=== PATIENT | male | born 1945 | race Caucasian/White ===

== ENCOUNTER → 2018-04-27 10:12 | Outpatient (CLI) | payer MEDICARE, OTHER, SELFPAY | PROVIDERS: PCP Family Medicine; Visit Provider Urology | DX: R97.20 Elevated prostate specific antigen [PSA] (principal) | CPT/HCPCS: 36415; 84153 ==

== ENCOUNTER → 2018-09-05 10:49 | Outpatient (CLI) | payer MEDICARE, OTHER, SELFPAY ==
[2018-09-05 12:21] LABS: Add Manual Diff / Slide Review NO; Basophils Percent Auto 0.7 % (0-2); Eosinophils Percent Auto 1.7 % (2-4); Hematocrit 44.4 % (41-53); Hemoglobin 14.9 g/dL (13.5-17.5); Lymphocytes Percent Auto 35.7 % (25-40); Mean Corpuscular HGB Conc 33.6 % (30-36); Mean Corpuscular Hemoglobin 31.3 PG (26-34); Mean Corpuscular Volume 93.1 fL (80-100); Monocytes Percent Auto 7.1 % (3-14); Neutrophils Absolute Auto 2800 /uL (3000-5900); Neutrophils Percent Auto 54.8 % (50-75); Platelet Count 219 X10^3/uL (150-400); Red Blood Cell Count 4.77 X10^6/uL (4.5-5.9); Red Cell Distribution Width 13.5 % (11.6-14.8); White Blood Cell Count 5.2 X10^3/uL (4.5-11.0)
[2018-09-05 12:43] LABS: Alanine Aminotransferase 29 IU/L (21-72); Albumin 4.2 g/dL (3.5-5.0); Albumin Globulin Ratio 1.8 (1.0-2.8); Alkaline Phosphatase 68 U/L (38-126); Aspartate Aminotransferase 24 IU/L (17-59); BUN Creatinine Ratio 17.1 (6-22); Bilirubin Total 0.5 mg/dL (0.2-1.3); Blood Urea Nitrogen 12 mg/dL (9-20); Calcium 9.6 mg/dL (8.4-10.2); Carbon Dioxide 33 mmol/L (22-32); Chloride 102 mmol/L (98-107); Estimated Glomerular Filt Rate > 60.0 mL/min (>60); Globulin 2.4 g/dL (1.7-4.1); Glucose 88 mg/dL (80-110); HEMOLYSIS < 15 (0-50); Potassium 4.3 mmol/L (3.4-5.1); Sodium 144 mmol/L (137-145); Total Protein 6.6 g/dL (6.3-8.2)
== END ==
PROVIDERS: Family Provider Family Medicine; PCP Family Medicine; Visit Provider Internal Medicine Cardiovascular Disease
DX: I48.91 Unspecified atrial fibrillation (principal)
CPT/HCPCS: 36415; 80053; 85025

== ENCOUNTER → 2019-05-14 08:10 | Outpatient (CLI) | payer MEDICARE, OTHER, SELFPAY ==
[2019-05-14 09:42] LABS: Prostate Specific Antigen 1.18 ng/mL (0.10-4.00)
== END ==
PROVIDERS: Family Provider Family Medicine; PCP Family Medicine; Visit Provider Urology
DX: R97.20 Elevated prostate specific antigen [PSA] (principal)
CPT/HCPCS: 36415; 84153

== ENCOUNTER 2019-11-28 07:39 | Day surgery (SDC) | payer MEDICARE, OTHER, SELFPAY ==
--- NOTE | 2019-11-28 | PATH_ITS ---
[facility] Accession Number: [id number] . 01 Material submitted: . colon - COLON BIOPSY AT 20 X2 . 01 Clinical history: . COLONOSCOPY . 02 Diagnosis: Colon Biopsy at 20 cm x2: Multiple fragments of serrated lesion, cannot exclude sessile serrated adenoma. MRV 11/29/2019 1322 Local . 02 Electronically signed: . Nadia Boggs MD, Pathologist NPI- [id number] . 01 Gross description: . COLON BIOPSY AT 20 X2: Received in formalin are multiple fragment(s) of miguel, soft tissue measuring 0.1 x 0.1 x 0.1 cm to 0.2 x 0.2 x 0.2 cm submitted entirely in 1 cassette(s) /[facility] 11/29/2019 0016 Local . 02 Pathologist provided ICD-10: R85.5, K62.5 . 02 CPT . 415244 Performed at: 01 [facility] [address], [place], [place] [id number] MD Vladimir Silva MD Phone: [phone] Performed at: 02 [facility] [address] [place], [place] [id number] MD Mary Torres MD Phone: [phone]
[2019-11-28 08:05] VITALS: BP 149/99; PULSE 101; RESP 16; TEMP 36; O2SAT 99; BMI 27.0
--- NOTE | 2019-11-28 08:41 | PM.PREOP ---
Pre-operative Note Interval Note History & Physical reviewed/Exam performed by Physician: Yes Changes to H&P: No ASA Class (for procedural sedation): II
[2019-11-28] MEDS: MIDAZOLAM 5 MG/5 ML VIAL IV (08:49)
[2019-11-28] MEDS: fentaNYL 250 MCG/5 ML INJ IV (08:49)
[2019-11-28] MEDS: SODIUM CHLORIDE 0.9% 1,000 ML 200 ML IV (09:00)
--- NOTE | 2019-11-28 09:10 | SUR.OPER ---
GLASSES IN LABELED BAG TO PACU WITH PATIENT.
[2019-11-28 09:20] VITALS: BP 113/71; PULSE 92; RESP 17; TEMP 36.6; O2SAT 97
--- NOTE | 2019-11-28 09:23 | PM.OP.ENDO ---
Operative Date/Time/Diagnoses Date of procedure: 11/28/19 Time of procedure: 09:23 Pre-op diagnosis: Screening exam. Positive fit test. Post-op diagnosis: same (Two very small polyps in the rectum which were placed in the same container.) Procedure & Clinicians Study performed: Colonoscopy with cold biopsy Same procedure as scheduled: Yes Indications: Screening and positive fit test Surgeon: Edi Garcia Procedure Notes SCOAP/Timeout: Performed Procedure in detail: The patient was placed in the left lateral decubitus position and underwent IV sedation directed by the surgeon consisting of fentanyl and Versed. Digital exam was unremarkable except for some mild narrowing of the anus. The scope was inserted and advanced through the rectum into the sigmoid, descending, transverse, and ascending colon. The cecum was reached identified by the ileocecal valve and the appendiceal opening. The scope was gradually brought out. Two Polyps were found at the rectum at 15 and 20 cm from the anal verge. There were placed in the same container. The scope ultimately was retroflexed in the rectum. The appearance was normal. The scope was removed and the patient tolerated the procedure well. Prep was adequate Scope withdrawal time: 6 minutes (8-1/2 total) Sedation minutes: 26 Findings: polyp (Two small) Specimen(s): other (Polyps) Complications: none Post-procedure Recommendations: Colonscopy in 5 years Follow up: as needed Disposition: PACU
[2019-11-28 09:25] VITALS: BP 111/71; PULSE 85; RESP 14; O2SAT 97
[2019-11-28 09:30] VITALS: BP 112/72; PULSE 84; RESP 11; TEMP 37.1; O2SAT 98
[2019-11-28 09:36] VITALS: BP 122/74; PULSE 83; RESP 16; TEMP 36.3; O2SAT 98
== END 2019-11-28 10:00 | disposition home or self-care (01) ==
PROVIDERS: PCP Family Medicine; Visit Provider Specialist
PROC: 0DJD8ZZ Inspection of Lower Intestinal Tract, Via Natural or Artificial Opening Endoscopic (ICD-10-PCS; CPT 45378; principal; 2019-11-28 08:45)
DX: K63.5 Polyp of colon (principal); I48.91 Unspecified atrial fibrillation; Z79.01 Long term (current) use of anticoagulants; N40.0 Benign prostatic hyperplasia without lower urinary tract symptoms
CPT/HCPCS: 45380; 99152; 99153; J2250; J3010

== ENCOUNTER → 2020-04-10 07:42 | Outpatient (CLI) | payer MEDICARE, OTHER, SELFPAY ==
--- NOTE | 2020-04-10 | DI.NM.S_ITS ---
PROCEDURE: NM TYLER PERF SPECT REST & STR Rest and exercise myocardial perfusion SPECT with gated imaging and ejection fraction RADIOPHARMACEUTICAL: 11.0 mCi Tc-99m sestamibi IV at rest and 25.6 mCi Tc-99m sestamibi IV at peak exercise. A one day-protocol was performed. INDICATIONS: Unspecified atrial fibrillation TECHNIQUE: Radiopharmaceutical was injected at peak stress test, and also at rest. SPECT images were obtained. SPECT myocardial perfusion images were displayed in short axis, horizontal long axis, and vertical long axis views. Gated images were reviewed using [employer]igating [employer] software. COMPARISON: None. CARDIAC STRESS: A standard treadmill exercise tolerance test was performed by the patient under the supervision of an attending staff. The patient exercised for 6 minutes and 30 seconds; functional aerobic impairment (JERRY) is -5%. Hemodynamic data: There is normal blood pressure and heart rate response to exercise stress. Patient achieved 112% of maximum predicted heart rate at peak exercise. Symptoms: Patient denied chest pain during exercise. EKG: Atrial fibrillation with controlled ventricular response at rest. No diagnostic EKG changes of ischemia. FINDINGS: Raw data: There is good myocardial labeling by radiotracer. No significant motion artifacts. Qqlm-uc-eqhrk ratio is 0.38 (normal is less than 0.38 for sestamibi tracer, and less than 0.50 for thallium tracer). Left ventricle function: Gated images demonstrate normal left ventricle wall thickening. No segmental wall motion abnormality. No transient ischemic dilation; TID is 0.99 (normal less than 1.3). The left ventricle resting end-diastolic volume is 123 mL. Left ventricle stress ejection fraction is 63%; normal values are above 45%. Myocardial perfusion: There is mildly intense fixed inferior wall defect that improves significantly with prone imaging, suggesting diaphragmatic attenuation artifact than true ischemia or infarction. IMPRESSION: Low risk, probably normal treadmill nuclear stress test. 1) No definite perfusion evidence of ischemia or ischemia. There is mildly intense fixed inferior wall defect that improves significantly with prone imaging, suggesting diaphragmatic attenuation artifact than true ischemia or infarction. 2) Normal left ventricular size, wall motion, and systolic function (EF post stress 63%). 3) No ECG evidence of ischemia. Atrial fibrillation present throughout the study. 4) No angina during the study. 5) Average exercise tolerance (7.0 METs, JERRY -5%). Appropriate BP response to exercise. 6) No prior nuclear stress test available for comparison. Dictated by: Jonathan Vuong MD on 04/10/2020 at 14:57 Approved by: Jonathan Vuong MD on 04/10/2020 at 15:02
--- NOTE | 2020-04-10 11:51 | PM.TREADMILL ---
Cardiac Stress Test Report Referral & Results Date Patient Seen: 04/10/20 Time Patient Seen: 11:51 Requesting provider: John Paul Gallardo Indication: atrial fibrillation Rest ECG: atrial fibrillationw with controlled ventricular rate Procedure Note: Standard protocol, 6:30, 7.3 METS Fair exercise capacity, JERRY -5% Normal hemodynamic response to exercise No chest pain or anginal symptoms Resting ECG atrial fibrillation with CVR, no ST changes with exercise, rare couplets Impression: Normal exercise stress test Please note: Actual ECG tracings can be found in the PACS system.
== END ==
PROVIDERS: PCP Family Medicine; Referring Provider Family Medicine; Visit Provider Family Medicine
DX: I48.91 Unspecified atrial fibrillation (principal)
CPT/HCPCS: 78452; 93017; A9502

== ENCOUNTER → 2020-04-24 07:50 | Outpatient (CLI) | payer MEDICARE, OTHER, SELFPAY ==
[2020-04-24 10:18] LABS: Prostate Specific Antigen 1.03 ng/mL (0.10-4.00)
== END ==
PROVIDERS: PCP Family Medicine; Referring Provider Urology; Visit Provider Urology
DX: R97.20 Elevated prostate specific antigen [PSA] (principal)
CPT/HCPCS: 36415; 84153

== ENCOUNTER → 2020-10-10 07:31 | Outpatient (CLI) | payer MEDICARE, OTHER, SELFPAY ==
[2020-10-10 09:32] LABS: Alanine Aminotransferase 15 IU/L (<50); Albumin 4.3 g/dL (3.5-5.0); Albumin Globulin Ratio 1.5 (1.0-2.8); Alkaline Phosphatase 71 U/L (38-126); Aspartate Aminotransferase 25 IU/L (17-59); BUN Creatinine Ratio 15.4 (6-22); Bilirubin Total 0.6 mg/dL (0.2-1.3); Blood Urea Nitrogen 10 mg/dL (9-20); Calcium 9.5 mg/dL (8.4-10.2); Carbon Dioxide 30 mmol/L (22-32); Chloride 105 mmol/L (98-107); Cholesterol 157 mg/dL (140-199); Creatinine Urine Random 57.4 mg/dL; Estimated Glomerular Filt Rate > 60.0 mL/min (>60); Globulin 2.8 g/dL (1.7-4.1); Glucose 112 mg/dL (80-110); HDL Cholesterol 47 mg/dL (40-60); HEMOLYSIS < 15 (0-50); LDL Cholesterol Calculated 96 mg/dL (<100); Sodium 139 mmol/L (137-145); Total Protein 7.1 g/dL (6.3-8.2); Triglycerides 68 mg/dL (35-150)
[2020-10-10 09:43] LABS: Microalbumin Urine Random < 0.6 mg/dL (0-1.6)
== END ==
PROVIDERS: PCP Family Medicine; Referring Provider Family Medicine; Visit Provider Family Medicine
DX: I10 Essential (primary) hypertension (principal); I48.91 Unspecified atrial fibrillation; N13.8 Other obstructive and reflux uropathy; N40.1 Benign prostatic hyperplasia with lower urinary tract symptoms
CPT/HCPCS: 36415; 80053; 80061; 82043; 82570

== ENCOUNTER → 2021-06-03 08:52 | Outpatient (CLI) | payer MEDICARE, OTHER, SELFPAY ==
[2021-06-03 10:53] LABS: Prostate Specific Antigen 1.02 ng/mL (0.10-4.00)
== END ==
PROVIDERS: PCP Family Medicine; Referring Provider Specialist; Visit Provider Specialist
DX: N13.8 Other obstructive and reflux uropathy (principal); N40.1 Benign prostatic hyperplasia with lower urinary tract symptoms
CPT/HCPCS: 36415; 84153

== ENCOUNTER → 2021-12-28 07:48 | Outpatient (CLI) | payer MEDICARE, OTHER, SELFPAY ==
[2021-12-28 09:51] LABS: Add Manual Diff / Slide Review NO; Basophils Absolute Auto 0 /uL (0-100); Basophils Percent Auto 0.3 % (0-2); Eosinophils Absolute Auto 100 /uL (0-450); Eosinophils Percent Auto 1.3 % (2-4); Hematocrit 44.7 % (41-53); Hemoglobin 15.4 g/dL (13.5-17.5); Lymphocytes Absolute Auto 1500 /uL (1100-4500); Lymphocytes Percent Auto 25.6 % (25-40); Mean Corpuscular HGB Conc 34.5 % (30-36); Mean Corpuscular Hemoglobin 31.6 PG (26-34); Mean Corpuscular Volume 91.6 fL (80-100); Monocytes Absolute Auto 400 /uL (0-900); Monocytes Percent Auto 7.5 % (3-14); Neutrophils Absolute Auto 3900 /uL (1500-7000); Neutrophils Percent Auto 65.3 % (50-75); Platelet Count 199 X10^3/uL (150-400); Red Blood Cell Count 4.87 X10^6/uL (4.5-5.9); Red Cell Distribution Width 13.6 % (11.6-14.8); White Blood Cell Count 5.9 X10^3/uL (4.5-11.0)
[2021-12-28 10:24] LABS: Alanine Aminotransferase 19 IU/L (<50); Albumin 4.3 g/dL (3.5-5.0); Albumin Globulin Ratio 1.5 (1.0-2.8); Alkaline Phosphatase 72 U/L (38-126); Aspartate Aminotransferase 29 IU/L (17-59); BUN Creatinine Ratio 13.9 (6-22); Bilirubin Total 0.8 mg/dL (0.2-1.3); Blood Urea Nitrogen 10 mg/dL (9-20); Calcium 9.6 mg/dL (8.4-10.2); Carbon Dioxide 31 mmol/L (22-32); Chloride 103 mmol/L (98-107); Cholesterol 161 mg/dL (140-199); Estimated Glomerular Filt Rate > 60.0 mL/min (>60); Globulin 2.8 g/dL (1.7-4.1); Glucose 95 mg/dL (80-110); HDL Cholesterol 50 mg/dL (40-60); HEMOLYSIS < 15 (0-50); LDL Cholesterol Calculated 99 mg/dL (<100); Potassium 3.7 mmol/L (3.4-5.1); Sodium 141 mmol/L (137-145); Total Protein 7.1 g/dL (6.3-8.2); Triglycerides 61 mg/dL (35-150)
[2021-12-28 11:13] LABS: Creatinine Urine Random 39.2 mg/dL
[2021-12-28 11:18] LABS: Microalbumi Creatinin Ratio Ur 17.8 ug/mg CR (<30); Microalbumin Urine Random 0.7 mg/dL (0-1.6)
== END ==
PROVIDERS: PCP Family Medicine; Referring Provider Family Medicine; Visit Provider Family Medicine
DX: I48.19 Other persistent atrial fibrillation (principal); I10 Essential (primary) hypertension; I49.9 Cardiac arrhythmia, unspecified
CPT/HCPCS: 36415; 80053; 80061; 82043; 82570; 85025

== ENCOUNTER → 2022-01-18 09:59 | Outpatient (CLI) | payer MEDICARE, OTHER, SELFPAY ==
--- NOTE | 2022-01-18 10:01 | DI.RAD.S_ITS ---
PROCEDURE: XR CERVICAL SPINE 2V OR 3V INDICATIONS: chronic neck pain TECHNIQUE: 3 view(s) of the cervical spine were acquired. COMPARISON: None. FINDINGS: Bones: No fractures or dislocations to the T1 level. The lateral masses of C1 appear intact on the odontoid view. No suspicious bony lesions. There is ankylosis of the C2-3 facet joints, and interbody fusion at C4-5 without instrumentation. Disc space narrowing and hypertrophic facet joints noted in the lower cervical spine. Straightening of the normal cervical lordosis may be related to muscle spasm or positioning. Normal craniovertebral relationships Soft tissues: No prevertebral soft tissue swelling. IMPRESSION: 1. Multilevel degenerative disc disease and arthropathy noted in the lower cervical spine Approved by: Elia Gauthier M.D. on 01/18/2022 at 11:16
--- NOTE | 2022-01-18 10:01 | DI.RAD.S_ITS ---
PROCEDURE: XR LUMBAR SPINE 2-3V INDICATIONS: chronic low back pain TECHNIQUE: 3 views of the lumbar spine were acquired. COMPARISON: None. FINDINGS: Bones: 5 ozf-lqb-ddjvcjv vertebrae are present. There is normal bony alignment. No vertebral body compression fractures. No suspicious bony lesions. Disc space narrowing and hypertrophic facet joints present in the lower lumbar spine. Incidental note is made of partial sacralization of the L5 lumbar vertebral body. Soft tissues: Overlying bowel gas pattern is normal. No suspicious soft tissue calcifications. Moderate fecal debris noted in the right colon. IMPRESSION: Multilevel degenerative disc disease and arthropathy. Incidental partial sacralization of the L5 vertebral body Moderate fecal debris in the right colon Approved by: Elia Gauthier M.D. on 01/18/2022 at 11:19
== END ==
PROVIDERS: PCP Family Medicine; Referring Provider Family Medicine; Visit Provider Family Medicine
DX: M47.812 Spondylosis without myelopathy or radiculopathy, cervical region (principal); M50.30 Other cervical disc degeneration, unspecified cervical region; M51.36 Other intervertebral disc degeneration, lumbar region; M47.816 Spondylosis without myelopathy or radiculopathy, lumbar region; M54.50 Low back pain, unspecified; I10 Essential (primary) hypertension; G89.29 Other chronic pain
CPT/HCPCS: 72040; 72100

== ENCOUNTER → 2022-02-21 10:02 | Outpatient (CLI) | payer MEDICARE, OTHER, SELFPAY ==
[2022-02-21 13:46] LABS: COVID19 -Nasal RAPID Negative (Negative)
== END ==
PROVIDERS: PCP Family Medicine; Visit Provider Family Medicine Sleep Medicine
DX: Z20.822 Contact with and (suspected) exposure to COVID-19 (principal)
CPT/HCPCS: 87635; C9803

== ENCOUNTER → 2022-02-22 09:44 | Outpatient (CLI) | payer MEDICARE, OTHER, SELFPAY ==
--- NOTE | 2022-02-23 20:55 | DI.NM.S_ITS ---
DATE OF SERVICE: 02/22/2022 PROCEDURE PERFORMED: Exercise perfusion study. INDICATION: Syncope with underlying AFib. RADIOPHARMACEUTICAL: 25.1 millicurie technetium-99m Myoview IV was injected at stress and 11.8 millicurie technetium-99m Myoview IV was injected at rest. CARDIAC STRESS: The patient underwent exercise perfusion study under the supervision of an attending staff. The patient walked on protocol for 9 minutes and achieved 131 percent of target heart rate with maximum heart rate of 188 beats per minute. Normal peak blood pressure 154/98 mmHg. Baseline rhythm was atrial fibrillation with controlled ventricular rate with some nonspecific ST changes. The patient continued to have nonspecific ST-T changes during exercise. In early recovery, the patient had about [address] depression in inferior leads, which got recovered to baseline in 3 minutes. Occasional PVCs and one ventricular couplet. No ventricular tachycardia. No anginal symptoms. The patient achieved 10.1 METs of workload and functional aerobic impairment 47 percent. RAW DATA: There is increased subdiaphragmatic activity. GATED STUDY: Resting LV ejection fraction 65 percent and stress LV ejection fraction 72 percent. Resting end-diastolic volume 123 mL. TID ratio 0.86, which is within normal limits. Lung/heart ratio 0.37, which is within normal limits. MYOCARDIAL PERFUSION SCAN: Stress supine, resting supine and stress prone images were compared to each other. Stress supine and resting supine images revealed a small size, mildly decreased perfusion of inferior wall, as well as distal septum. During stress prone images, significant improvement in inferior wall defect, as well as distal septal defect. No convincing ischemia or infarction. CONCLUSION: Low risk, probably normal treadmill nuclear stress test. No obvious evidence of ischemia or infarction. The stress prone images revealed improvement in inferior wall and distal septal perfusion defect. Excellent exercise tolerance. JERRY -47 percent. The patient walked on protocol for 9 minutes. Baseline atrial fibrillation with controlled ventricular rate, however, during exercise. Maximum heart rate of 188, achieved with underlying atrial fibrillation. Nonspecific ST changes. Stress left ventricular ejection fraction 72 percent and resting left ventricular ejection fraction 55 percent. No anginal symptoms. The patient had exercise perfusion study in 02/09/2020. At that time, the patient walked on protocol for 6 minutes and 30 seconds. Similar perfusion defect. In this study, the patient walked on protocol for 9 minutes. Mike Maldonado: [id number] KWAKU/maryann/david doc#: [id number]/job#: [id number] dd: 02/23/2022 17:22:00 dt: 02/23/2022 20:32:00 DICTATING MD/COPIES TO: Soco Howe MD COPIES MNE: EVELIA;
== END ==
PROVIDERS: PCP Family Medicine; Referring Provider Internal Medicine Cardiovascular Disease; Visit Provider Internal Medicine Cardiovascular Disease
DX: R55 Syncope and collapse (principal); I48.21 Permanent atrial fibrillation; I47.2 Ventricular tachycardia
CPT/HCPCS: 78452; 93017; A9502

== ENCOUNTER → 2022-07-12 09:00 | Outpatient (CLI) | payer MEDICARE, OTHER, SELFPAY ==
[2022-07-12 10:55] LABS: Prostate Specific Antigen 1.22 ng/mL (0.10-4.00)
== END ==
PROVIDERS: PCP Family Medicine; Referring Provider Specialist; Visit Provider Specialist
DX: R97.20 Elevated prostate specific antigen [PSA] (principal)
CPT/HCPCS: 36415; 84153

== ENCOUNTER → 2023-03-29 07:38 | Outpatient (CLI) | payer MEDICARE, OTHER, SELFPAY ==
[2023-03-29 08:04] LABS: Add Manual Diff / Slide Review NO; Basophils Absolute Auto 0 /uL (0-100); Basophils Percent Auto 0.7 % (0-2); Eosinophils Absolute Auto 100 /uL (0-450); Eosinophils Percent Auto 1.1 % (2-4); Hematocrit 42.7 % (41-53); Hemoglobin 14.8 g/dL (13.5-17.5); Lymphocytes Absolute Auto 1700 /uL (1100-4500); Lymphocytes Percent Auto 33.3 % (25-40); Mean Corpuscular HGB Conc 34.6 % (30-36); Mean Corpuscular Hemoglobin 31.7 PG (26-34); Mean Corpuscular Volume 91.5 fL (80-100); Monocytes Absolute Auto 400 /uL (0-900); Monocytes Percent Auto 7.7 % (3-14); Neutrophils Absolute Auto 3000 /uL (1500-7000); Neutrophils Percent Auto 57.2 % (50-75); Platelet Count 193 X10^3/uL (150-400); Red Blood Cell Count 4.66 X10^6/uL (4.5-5.9); Red Cell Distribution Width 13.8 % (11.6-14.8); White Blood Cell Count 5.2 X10^3/uL (4.5-11.0)
[2023-03-29 08:24] LABS: Alanine Aminotransferase 21 IU/L (<50); Albumin Globulin Ratio 1.6 (1.0-2.8); Alkaline Phosphatase 79 U/L (38-126); Aspartate Aminotransferase 26 IU/L (17-59); Bilirubin Total 0.6 mg/dL (0.2-1.3); Blood Urea Nitrogen 13 mg/dL (9-20); Calcium 9.1 mg/dL (8.4-10.2); Carbon Dioxide 31 mmol/L (22-32); Chloride 102 mmol/L (98-107); Cholesterol 158 mg/dL (140-199); Estimated Glomerular Filt Rate > 60 mL/min (>60); Globulin 2.5 g/dL (1.7-4.1); Glucose 105 mg/dL (80-110); HDL Cholesterol 50 mg/dL (40-60); HEMOLYSIS < 15 (0-50); LDL Cholesterol Calculated 98 mg/dL (<100); Potassium 4.2 mmol/L (3.4-5.1); Sodium 140 mmol/L (137-145); Total Protein 6.5 g/dL (6.3-8.2); Triglycerides 49 mg/dL (35-150)
[2023-03-29 08:38] LABS: Creatinine Urine Random 145.7 mg/dL
[2023-03-29 08:42] LABS: Microalbumi Creatinin Ratio Ur 17.8 ug/mg CR (<30); Microalbumin Urine Random 2.6 mg/dL (0-1.6)
[2023-03-29 08:52] LABS: TSH w/ Reflex to FT4 2.73 uIU/mL (0.47-4.68)
[2023-03-29 09:12] LABS: Vitamin B12 Reflex MMA if <400 380 pg/mL (239-931)
[2023-04-06 14:58] LABS: Methylmalonic Acid,Serum 188 nmol/L (0-378)
== END ==
PROVIDERS: PCP Family Medicine; Referring Provider Family Medicine; Visit Provider Family Medicine
DX: G62.9 Polyneuropathy, unspecified (principal); R20.0 Anesthesia of skin
CPT/HCPCS: 36415; 80053; 80061; 82043; 82570; 82607; 83921; 84443; 85025

== ENCOUNTER → 2023-07-18 10:24 | Outpatient (CLI) | payer MEDICARE, OTHER, SELFPAY ==
[2023-07-18 12:41] LABS: Prostate Specific Antigen 1.14 ng/mL (0.10-4.00)
== END ==
PROVIDERS: PCP Family Medicine; Referring Provider Specialist; Visit Provider Specialist
DX: N40.1 Benign prostatic hyperplasia with lower urinary tract symptoms (principal); N13.8 Other obstructive and reflux uropathy
CPT/HCPCS: 36415; 84153

== ENCOUNTER → 2023-12-22 11:03 | Outpatient (CLI) | payer MEDICARE, OTHER, SELFPAY ==
--- NOTE | 2023-12-22 11:06 | DI.RAD.S_ITS ---
PROCEDURE: XR FOOT RT MIN 3V INDICATIONS: FOOT PAIN TECHNIQUE: 3 views of the foot were acquired. COMPARISON: [facility], , FOOT 3V LEFT, 09/22/2014, 22:40. FINDINGS: Bones: No fractures or dislocations. Mild 1st MTP and IP joint space narrowing and juxta-articular osteophytosis. Tiny dorsal osteophytosis in the midfoot. No suspicious bony lesions. Soft tissues: No tibiotalar joint effusion. Achilles tendon appears normal. IMPRESSION: 1. No acute bony abnormality. 2. 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 Dictated by: Madhu Browning M.D. on 12/22/2023 at 19:17 Approved by: Madhu Browning M.D. on 12/22/2023 at 19:18
--- NOTE | 2023-12-22 11:06 | DI.RAD.S_ITS ---
PROCEDURE: XR FOOT LT MIN 3V INDICATIONS: FOOT PAIN TECHNIQUE: 3 views of the foot were acquired. COMPARISON: [facility], , FOOT 3V LEFT, 09/22/2014, 22:40. FINDINGS: Bones: No fractures or dislocations. Mild 1st MTP and IP joint space narrowing and juxta-articular osteophytosis. Tiny dorsal osteophytosis in the midfoot. No suspicious bony lesions. Soft tissues: No tibiotalar joint effusion. Achilles tendon appears normal. Small plantar and Achilles calcaneal enthesophytes. IMPRESSION: 1. No acute bony abnormality. 2. 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 Dictated by: Madhu Browning M.D. on 12/22/2023 at 19:18 Approved by: Madhu Browning M.D. on 12/22/2023 at 19:21
== END ==
LOC: LAB 11:05
PROVIDERS: PCP Family Medicine; Referring Provider Podiatrist Foot & Ankle Surgery; Visit Provider Podiatrist Foot & Ankle Surgery
DX: M79.672 Pain in left foot (principal)
CPT/HCPCS: 73630

== ENCOUNTER → 2024-01-09 10:54 | Outpatient (CLI) | payer MEDICARE, OTHER, SELFPAY ==
[2024-01-09 12:15] LABS: Add Manual Diff / Slide Review NO; Basophils Absolute Auto 0 /uL (0-100); Basophils Percent Auto 0.5 % (0-2); Eosinophils Absolute Auto 100 /uL (0-450); Eosinophils Percent Auto 0.9 % (2-4); Hematocrit 42.7 % (41-53); Hemoglobin 14.6 g/dL (13.5-17.5); Lymphocytes Absolute Auto 1400 /uL (1100-4500); Lymphocytes Percent Auto 24.7 % (25-40); Mean Corpuscular HGB Conc 34.2 % (30-36); Mean Corpuscular Hemoglobin 31.5 PG (26-34); Mean Corpuscular Volume 92.2 fL (80-100); Monocytes Absolute Auto 400 /uL (0-900); Monocytes Percent Auto 6.4 % (3-14); Neutrophils Absolute Auto 3800 /uL (1500-7000); Neutrophils Percent Auto 67.5 % (50-75); Platelet Count 185 X10^3/uL (150-400); Red Blood Cell Count 4.63 X10^6/uL (4.5-5.9); White Blood Cell Count 5.7 X10^3/uL (4.5-11.0)
[2024-01-09 12:58] LABS: Alanine Aminotransferase 17 IU/L (<50); Albumin 4.2 g/dL (3.5-5.0); Albumin Globulin Ratio 1.4 (1.0-2.8); Alkaline Phosphatase 63 U/L (38-126); Aspartate Aminotransferase 27 IU/L (17-59); BUN Creatinine Ratio 18.2 (6-22); Bilirubin Total 0.9 mg/dL (0.2-1.3); Blood Urea Nitrogen 12 mg/dL (9-20); Calcium 9.5 mg/dL (8.4-10.2); Carbon Dioxide 30 mmol/L (22-32); Chloride 103 mmol/L (98-107); Cholesterol 157 mg/dL (140-199); Estimated Glomerular Filt Rate > 60 mL/min (>60); Globulin 2.9 g/dL (1.7-4.1); Glucose 77 mg/dL (80-110); HDL Cholesterol 52 mg/dL (40-60); HEMOLYSIS < 15 (0-50); LDL Cholesterol Calculated 92 mg/dL (<100); Sodium 140 mmol/L (137-145); Total Protein 7.1 g/dL (6.3-8.2); Triglycerides 63 mg/dL (35-150)
[2024-01-09 13:27] LABS: TSH w/ Reflex to FT4 2.16 uIU/mL (0.47-4.68)
[2024-01-09 16:28] LABS: Creatinine Urine Random 18.8 mg/dL
[2024-01-09 16:31] LABS: Microalbumi Creatinin Ratio Ur 122.3 ug/mg CR (<30); Microalbumin Urine Random 2.3 mg/dL (0-1.6)
== END ==
PROVIDERS: PCP Family Medicine; Referring Provider Family Medicine; Visit Provider Family Medicine
DX: G62.9 Polyneuropathy, unspecified (principal); I10 Essential (primary) hypertension; Z12.5 Encounter for screening for malignant neoplasm of prostate; I48.91 Unspecified atrial fibrillation; N52.9 Male erectile dysfunction, unspecified; N40.1 Benign prostatic hyperplasia with lower urinary tract symptoms; R63.4 Abnormal weight loss; N13.8 Other obstructive and reflux uropathy
CPT/HCPCS: 36415; 80053; 80061; 82043; 82570; 84443; 85025; G0103

== ENCOUNTER → 2024-03-29 11:00 | Outpatient (CLI) | payer MEDICARE, OTHER, SELFPAY ==
[2024-03-29 13:07] LABS: Creatinine Urine Random 33.3 mg/dL
[2024-03-29 13:13] LABS: Microalbumin Urine Random < 0.6 mg/dL (0-1.6)
[2024-03-29 13:22] LABS: Alanine Aminotransferase 17 IU/L (<50); Albumin 4.2 g/dL (3.5-5.0); Albumin Globulin Ratio 1.8 (1.0-2.8); Alkaline Phosphatase 73 U/L (38-126); Aspartate Aminotransferase 33 IU/L (17-59); BUN Creatinine Ratio 21.9 (6-22); Bilirubin Total 0.8 mg/dL (0.2-1.3); Blood Urea Nitrogen 14 mg/dL (9-20); Calcium 9.6 mg/dL (8.4-10.2); Carbon Dioxide 29 mmol/L (22-32); Chloride 105 mmol/L (98-107); Estimated Glomerular Filt Rate > 60 mL/min (>60); Globulin 2.4 g/dL (1.7-4.1); Glucose 81 mg/dL (80-110); HEMOLYSIS < 15 (0-50); Potassium 4.3 mmol/L (3.4-5.1); Sodium 139 mmol/L (137-145); Total Protein 6.6 g/dL (6.3-8.2)
== END ==
PROVIDERS: PCP Family Medicine; Referring Provider Family Medicine; Visit Provider Family Medicine
DX: R80.9 Proteinuria, unspecified (principal); I10 Essential (primary) hypertension
CPT/HCPCS: 36415; 80053; 82043; 82570

== ENCOUNTER → 2024-07-15 07:27 | Outpatient (CLI) | payer MEDICARE, OTHER, SELFPAY ==
[2024-07-15 10:09] LABS: Prostate Specific Antigen 0.975 ng/mL (0.10-4.00)
== END ==
LOC: LAB 07:28
PROVIDERS: PCP Family Medicine; Referring Provider Specialist; Visit Provider Specialist
DX: N40.1 Benign prostatic hyperplasia with lower urinary tract symptoms (principal); N13.8 Other obstructive and reflux uropathy
CPT/HCPCS: 36415; 84153

== ENCOUNTER → 2024-07-17 11:51 | Outpatient (CLI) | payer MEDICARE, OTHER, SELFPAY | PROVIDERS: PCP Family Medicine; Visit Provider Physician Assistant Surgical | DX: R19.7 Diarrhea, unspecified (principal); R30.0 Dysuria | CPT/HCPCS: 87086; 87205 ==

== ENCOUNTER → 2024-07-18 14:30 | Outpatient (CLI) | payer MEDICARE, OTHER, SELFPAY | LOC: LAB 14:31 | PROVIDERS: PCP Family Medicine; Referring Provider Physician Assistant Surgical; Visit Provider Physician Assistant Surgical | DX: R19.7 Diarrhea, unspecified (principal) | CPT/HCPCS: 87205 ==

== ENCOUNTER → 2024-07-19 10:54 | Outpatient (CLI) | payer MEDICARE, OTHER, SELFPAY ==
[2024-07-19 16:48] LABS: Occult Blood 1 Negative (Negative); Occult Blood 2 Negative (Negative)
[2024-07-19 16:49] LABS: Occult Blood 3 Negative (Negative)
== END ==
PROVIDERS: PCP Family Medicine; Referring Provider Physician Assistant Surgical; Visit Provider Physician Assistant Surgical
DX: R19.7 Diarrhea, unspecified (principal)
CPT/HCPCS: 82270

== ENCOUNTER → 2025-05-20 07:11 | Outpatient (CLI) | payer MEDICARE, OTHER, SELFPAY ==
[2025-05-20 08:07] LABS: Add Manual Diff / Slide Review NO; Basophils Absolute Auto 0 /uL (0-100); Basophils Percent Auto 0.8 % (0-2); Eosinophils Absolute Auto 200 /uL (0-450); Eosinophils Percent Auto 2.8 % (2-4); Hematocrit 43.6 % (41-53); Lymphocytes Absolute Auto 1500 /uL (1100-4500); Lymphocytes Percent Auto 27.6 % (25-40); Mean Corpuscular HGB Conc 34.5 % (30-36); Mean Corpuscular Hemoglobin 32.3 PG (26-34); Mean Corpuscular Volume 93.6 fL (80-100); Monocytes Absolute Auto 500 /uL (0-900); Monocytes Percent Auto 8.3 % (3-14); Neutrophils Absolute Auto 3400 /uL (1500-7000); Neutrophils Percent Auto 60.5 % (50-75); Platelet Count 190 X10^3/uL (150-400); Red Blood Cell Count 4.65 X10^6/uL (4.5-5.9); White Blood Cell Count 5.6 X10^3/uL (4.5-11.0)
[2025-05-20 08:30] LABS: Creatinine Urine Random 34.71 mg/dL
[2025-05-20 08:31] LABS: Alanine Aminotransferase 17 IU/L (<50); Albumin 4.3 g/dL (3.5-5.0); Albumin Globulin Ratio 1.8 (1.0-2.8); Alkaline Phosphatase 79 U/L (38-126); Aspartate Aminotransferase 28 IU/L (17-59); BUN Creatinine Ratio 17.8 (6-22); Bilirubin Total 0.7 mg/dL (0.2-1.3); Blood Urea Nitrogen 13 mg/dL (9-20); Calcium 9.7 mg/dL (8.4-10.2); Carbon Dioxide 29 mmol/L (22-32); Chloride 103 mmol/L (98-107); Cholesterol 170 mg/dL (140-199); Estimated Glomerular Filt Rate > 60 mL/min (>60); Globulin 2.4 g/dL (1.7-4.1); Glucose 92 mg/dL (70-99); HDL Cholesterol 57 mg/dL (40-60); HEMOLYSIS < 15 (0-50); LDL Cholesterol Calculated 102 mg/dL (<100); Potassium 4.8 mmol/L (3.4-5.1); Sodium 139 mmol/L (137-145); Total Protein 6.7 g/dL (6.3-8.2); Triglycerides 56 mg/dL (35-150)
[2025-05-20 08:36] LABS: Microalbumin Urine Random < 0.6 mg/dL (0-1.6)
[2025-05-20 09:00] LABS: TSH w/ Reflex to FT4 2.94 uIU/mL (0.47-4.68)
== END ==
PROVIDERS: PCP Family Medicine; Referring Provider Family Medicine; Visit Provider Family Medicine
DX: I10 Essential (primary) hypertension (principal); I48.19 Other persistent atrial fibrillation; N40.1 Benign prostatic hyperplasia with lower urinary tract symptoms; G62.9 Polyneuropathy, unspecified; N13.8 Other obstructive and reflux uropathy
CPT/HCPCS: 36415; 80053; 80061; 82043; 82570; 84443; 85025

== ENCOUNTER 2025-07-05 02:07 | Emergency (ER) | payer MEDICARE, OTHER, SELFPAY ==
[2025-07-05] VITALS (23 sets, daily range): BP systolic 140–196; BP diastolic 73–107; PULSE 58–87; RESP 12–22; TEMP 36.3; O2SAT 94–100; BMI 25.0
--- NOTE | 2025-07-05 02:13 | ED.CHESTPAIN ---
HPI - Chest Pain General Chief Complaint: Chest Pain Stated Complaint: chest pain Time Seen by Provider: 07/05/25 02:12 History of Present Illness HPI narrative: 80-year-old male patient with a history of hypertension, atrial fibrillation, prostate cancer and chronic venous stasis who complains of lower chest and upper abdominal tight squeezing pain which started around midnight. No nausea, diarrhea, diaphoresis or shortness of breath. Paramedics gave him aspirin and tried 1 nitro spray but this did not help the symptoms. No previous symptoms like this. Related Data Previous Rx's ?Medication ?Instructions ?Recorded sildenafil (pulm.hypertension) 20 40 mg (2 x 20 mg) PO DAILY PRN 05/06/22 mg tablet sexual activity #30 tabs finasteride 5 mg tablet 5 mg PO DAILY #90 tabs 08/19/24 triamcinolone acetonide 0.1 % 1 applic topical BID #30 grams 05/19/25 topical cream apixaban 5 mg tablet (Eliquis) 5 mg PO BID #180 tabs 05/26/25 doxazosin 8 mg tablet 4 mg (1/2 x 8 mg) PO BEDTIME #45 06/19/25 tabs diltiazem HCl 120 mg 120 mg PO QDAY #60 caps 06/30/25 capsule,extended release 24 hr Allergies Allergy/AdvReac Type Severity Reaction Status Date / Time ibuprofen (IBUPROFEN) Allergy Severe RASH Verified 05/19/25 13:21 iodine (IODINE) Allergy Unknown Rash Verified 05/19/25 13:21 Review of Systems Review of Systems ROS Unobtainable: All systems reviewed & are unremarkable except as noted in HPI and below Cardiovascular Cardiovascular: Reports as per HPI and Denies dyspnea Respiratory Respiratory: Denies dyspnea Gastrointestinal Gastrointestinal: Reports as per HPI Patient History Medical History (Updated 07/05/25 @ 05:18 by Deshaun Aguilar MD) Venous stasis dermatitis Numbness Shoulder pain (~2015) Rubella (~1955) Mumps (~1956) Measles (~1953) Herpes Chicken pox (~1952) Left varicocele Erectile dysfunction BPH w urinary obs/LUTS Sleep apnea (~1994) Hypertension Edema DJD (degenerative joint disease) Erectile dysfunction Incomplete bladder emptying BPH (benign prostatic hyperplasia) Elevated PSA Microhematuria Enlarged prostate Atrial fibrillation Family History Daughter Gallstones Mother Breast cancer Father Kidney failure Social History marital status: household members: spouse occupational status: previously employed Smoking Status: Never smoker alcohol intake: current substance use type: does not use Exam Narrative Exam Narrative: General: Alert and conversant. Swdt-rj-mhetdxph distress. Appears well nourished and well hydrated Craniofacial: No evidence of trauma. Nontender and no swelling. Eyes: PERRLA EOMI conjunctiva clear Lungs: Clear to auscultation with good air movement. No wheezing, rales or rhonchi. No respiratory distress Cardiac: Regular rate and rhythm with no appreciable murmur or gallop Abdomen: Soft, mild upper abdominal tenderness. With no distention or masses. Normal bowel sounds. No rebound or guarding Genitourinary/pelvic: Musculoskeletal: Exam of the extremities, axial spine and ribcage reveals no deformity, bony tenderness or swelling. Range of motion intact Neuro: Alert and oriented. Cranial nerves, motor, sensory and cerebellar all grossly intact. No focal deficit Skin: Warm and normal color. No rashes Psychological: Normal affect and interaction. No evidence of delusion or psychosis. Normal mood. Initial Vital Signs Initial Vital Signs: Vital Signs Pulse Rate 87 07/05/25 02:16 Respiratory Rate 18 07/05/25 02:16 Pulse Oximetry 99 07/05/25 02:16 Course Orders Ordered: ED Orders 07/05/25 01:45 Complete Blood Count AUTO DIFF Stat Comprehensive Metabolic Panel Stat Lipase Stat Troponin & CK Cardiac Panel Stat 07/05/25 02:09 EKG-12 Lead Stat 07/05/25 02:28 XR chest 1V Stat 07/05/25 04:30 Troponin I Stat Nitroglycerin (Nitroglycerin 0.4 Mg Sl Tab) 0.4 mg SL [id number] PRN PRN Reason: Chest Pain Last Admin: 07/05/25 02:40 Dose: 0.4 mg Documented By: MARIBEL Simethicone (Simethicone 80 Mg Tablet) 80 mg PO QID ONE Stop: 07/05/25 05:22 Discontinued Medications Diphenhydramine HCl (Diphenhydramine 50 Mg/Ml Vial) 50 mg IV NOW ONE Stop: 07/05/25 02:38 Last Admin: 07/05/25 02:41 Dose: Not Given Documented By: Haloperidol (Haloperidol 5 Mg/Ml Vial) 5 mg IV NOW ONE Stop: 07/05/25 02:38 Last Admin: 07/05/25 02:42 Dose: Not Given Documented By: Metoprolol Tartrate (Metoprolol Tartrate 5 Mg/5 Ml Inj) 5 mg IV Q5M [facility] Stop: 07/05/25 02:56 Last Admin: 07/05/25 03:49 Dose: Not Given Documented By: Admin: 07/05/25 03:49 Dose: Not Given Documented By: Admin: 07/05/25 02:41 Dose: 5 mg Documented By: MARIBEL Morphine Sulfate (Morphine 4 Mg/Ml Inj) 4 mg IV NOW ONE Stop: 07/05/25 02:29 Vital Signs Vital signs: Vital Signs - 8 hr 07/05/25 02:16 07/05/25 02:21 07/05/25 02:29 Temperature 97.3 F L Pulse Rate 87 84 85 Respiratory Rate 18 19 Blood Pressure 176/107 H Pulse Oximetry 99 100 99 Oxygen Delivery Method Room Air 07/05/25 02:30 07/05/25 02:31 07/05/25 02:40 Temperature Pulse Rate 83 73 Respiratory Rate 17 Blood Pressure 196/88 H 170/81 H Pulse Oximetry 98 Oxygen Delivery Method 07/05/25 02:40 07/05/25 02:40 07/05/25 02:45 Temperature Pulse Rate 74 Respiratory Rate 17 Blood Pressure 170/81 H 150/77 H Pulse Oximetry 100 Oxygen Delivery Method 07/05/25 02:45 07/05/25 02:50 07/05/25 02:50 Temperature Pulse Rate 73 63 Respiratory Rate 15 12 Blood Pressure 152/78 H Pulse Oximetry 99 97 Oxygen Delivery Method 07/05/25 02:55 07/05/25 02:55 07/05/25 03:00 Temperature Pulse Rate 59 L Respiratory Rate 12 Blood Pressure 140/75 145/77 H Pulse Oximetry 97 Oxygen Delivery Method 07/05/25 03:00 07/05/25 03:05 07/05/25 03:05 Temperature Pulse Rate 64 63 Respiratory Rate 16 13 Blood Pressure 154/75 H Pulse Oximetry 98 97 Oxygen Delivery Method 07/05/25 03:10 07/05/25 03:10 07/05/25 03:15 Temperature Pulse Rate 64 61 Respiratory Rate 22 16 Blood Pressure 152/83 H Pulse Oximetry 99 98 Oxygen Delivery Method 07/05/25 03:15 07/05/25 03:22 07/05/25 03:22 Temperature Pulse Rate 60 Respiratory Rate 13 Blood Pressure 159/82 H 149/75 H Pulse Oximetry 97 Oxygen Delivery Method 07/05/25 03:25 07/05/25 03:25 07/05/25 03:30 Temperature Pulse Rate 61 Respiratory Rate 14 Blood Pressure 151/75 H 158/77 H Pulse Oximetry 99 Oxygen Delivery Method 07/05/25 03:30 07/05/25 03:36 07/05/25 03:36 Temperature Pulse Rate 62 58 L Respiratory Rate 15 15 Blood Pressure 144/75 H Pulse Oximetry 98 98 Oxygen Delivery Method MDM - Chest Pain Differential Diagnosis Differential diagnosis: Likely pneumothorax, unstable angina pectoris, atypical chest pain, st elevation myocardial infarction, chest pain and biliary colic Lab Data 07/05/25 01:45 07/05/25 01:45 Labs: Lab Results 07/05/25 07/05/25 Range/Units 01:45 04:30 WBC 6.4 (4.5-11.0) X10^3/uL RBC 4.60 (4.5-5.9) X10^6/uL Hgb 14.8 (13.5-17.5) g/dL Hct 42.9 (41-53) % MCV 93.2 (80-100) fL MCH 32.3 (26-34) PG MCHC 34.6 (30-36) % RDW 13.8 (11.6-14.8) % Plt Count 184 (150-400) X10^3/uL Neut % (Auto) 58.3 (50-75) % Lymph % (Auto) 29.8 (25-40) % [place] % (Auto) 9.0 (3-14) % Eos % (Auto) 2.6 (2-4) % Baso % (Auto) 0.3 (0-2) % Neut # (Auto) 3700 (3583-1732) /uL Lymph # (Auto) 1900 (5692-4705) /uL [place] # (Auto) 600 (0-900) /uL Eos # (Auto) 200 (0-450) /uL Baso # (Auto) 0 (0-100) /uL Sodium 139 (137-145) mmol/L Potassium 3.9 (3.4-5.1) mmol/L Chloride 102 (98-107) mmol/L Carbon Dioxide 29 (22-32) mmol/L BUN 16 (9-20) mg/dL Creatinine 0.70 (0.66-1.25) mg/dL Estimated GFR > 60 (>60) mL/min BUN/Creatinine Ratio 22.9 H (6-22) Glucose 119 H (70-99) mg/dL Calcium 9.3 (8.4-10.2) mg/dL Total Bilirubin 0.5 (0.2-1.3) mg/dL AST 31 (17-59) IU/L ALT 19 (<50) IU/L Alkaline Phosphatase 88 (38-126) U/L Total Creatine Kinase 86 (55-170) U/L Troponin I < 0.012 < 0.012 (0.01-0.034) ng/mL Total Protein 7.3 (6.3-8.2) g/dL Albumin 4.4 (3.5-5.0) g/dL Globulin 2.9 (1.7-4.1) g/dL Albumin/Globulin Ratio 1.5 (1.0-2.8) Lipase 72 (23-300) U/L Imaging Data Chest x-ray: Attestation: I personally reviewed and interpreted this imaging study as follows: My Impression: Unremarkable. No acute disease ECG Data Attestation: I personally reviewed and interpreted this ECG as follows: (Atrial fibrillation with a rate of 79. No ischemic changes. Normal axis ) MDM Narrative Medical decision making narrative: Patient presented with what seemed to be chest pressure but eventually this appeared to be coming from his upper abdomen and probably excess gas or possible gastritis. Lab work unremarkable and reassuring. Cardiac workup including EEG and troponin levels x2 negative. Patient is discharged home with instructions on managing upper abdominal pain and possible gas with simethicone and possibly famotidine. Follow up with primary care. Return to the ER if worse Discharge Plan Departure Patient Disposition: Home Clinical Impression: Atypical chest pain, Acute upper abdominal pain Instructions: DI for Abdominal Pain-Adult, DI for Atypical Chest Pain Activity Restrictions/Additional Instructions: Assessment: Lower chest upper abdominal tightness and pain with negative workup including negative lab work, cardiac enzymes and EKG. Undetermined cause. But does not appear to be cardiac or surgical. Possible excess gas or gastritis Plan: Hydration, rest and monitor symptoms. Try using simethicone for gas. May also try famotidine or omeprazole for acid. Follow up with your doctor if not improving. Return to the ER if worse Prescriptions: No Action sildenafil (pulm.hypertension) 20 mg tablet 40 mg PO DAILY PRN (Reason: sexual activity) Qty: 30 5RF finasteride 5 mg tablet 5 mg PO DAILY Qty: 90 3RF Eliquis 5 mg tablet 5 mg PO BID Qty: 180 3RF doxazosin 8 mg tablet 4 mg PO BEDTIME Qty: 45 3RF diltiazem HCl 120 mg capsule,extended release 24hr 120 mg PO QDAY Qty: 60 0RF triamcinolone acetonide 0.1 % cream 1 applic topical BID Qty: 30 1RF Rx Instructions: apply thin layer to affected area on lower legs Referrals: Ubaldo Prieto MD [Primary Care Provider, Family Practice] Stand Alone Forms: Patient Portal/API
--- NOTE | 2025-07-05 02:14 | EKG_ITS ---
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
--- NOTE | 2025-07-05 02:28 | DI.RAD.S_ITS ---
PROCEDURE: XR CHEST 1V INDICATIONS: chest pain TECHNIQUE: One view of the chest was acquired. COMPARISON: None. FINDINGS: Surgical changes and devices: None. Lungs and pleura: Lungs are clear. No pleural effusions or pneumothorax. Mediastinum: Mediastinal contours appear normal. Heart size is normal. Bones and chest wall: No suspicious bony lesions. Overlying soft tissues appear unremarkable. IMPRESSION: No acute cardiopulmonary abnormality is seen. Dictated by: Zhou Niño M.D. on 07/05/2025 at 7:58 Approved by: Zhou Niño M.D. on 07/05/2025 at 7:59
[2025-07-05] MEDS: NITROGLYCERIN 0.4 MG SL TAB SL (02:40)
[2025-07-05] MEDS: METOPROLOL TARTRATE 5 MG/5 ML INJ IV (02:41)
[2025-07-05 02:42] LABS: Add Manual Diff / Slide Review NO; Hematocrit 42.9 % (41-53); Hemoglobin 14.8 g/dL (13.5-17.5); Lymphocytes Absolute Auto 1900 /uL (1100-4500); Mean Corpuscular HGB Conc 34.6 % (30-36); Mean Corpuscular Hemoglobin 32.3 PG (26-34); Mean Corpuscular Volume 93.2 fL (80-100); Platelet Count 184 X10^3/uL (150-400)
[2025-07-05 02:47] LABS: Alanine Aminotransferase 19 IU/L (<50); Albumin 4.4 g/dL (3.5-5.0); Albumin Globulin Ratio 1.5 (1.0-2.8); Alkaline Phosphatase 88 U/L (38-126); Blood Urea Nitrogen 16 mg/dL (9-20); Calcium 9.3 mg/dL (8.4-10.2); Carbon Dioxide 29 mmol/L (22-32); Chloride 102 mmol/L (98-107); Creatine Kinase 86 U/L (55-170); Estimated Glomerular Filt Rate > 60 mL/min (>60); Globulin 2.9 g/dL (1.7-4.1); Glucose 119 mg/dL (70-99); HEMOLYSIS < 15 (0-50); Lipase 72 U/L (23-300); Potassium 3.9 mmol/L (3.4-5.1); Sodium 139 mmol/L (137-145); Total Protein 7.3 g/dL (6.3-8.2)
[2025-07-05 02:58] LABS: Troponin I < 0.012 ng/mL (0.01-0.034)
[2025-07-05 05:16] LABS: Troponin I < 0.012 ng/mL (0.01-0.034)
[2025-07-05] MEDS: SIMETHICONE 80 MG TABLET PO (05:36)
== END 2025-07-05 06:05 | disposition home or self-care (01) ==
PROVIDERS: Emergency Provider Emergency Medicine; PCP Family Medicine
DX: R07.89 Other chest pain (principal); R10.10 Upper abdominal pain, unspecified
CPT/HCPCS: 36415; 71045; 80053; 82550; 83690; 84484; 85025; 93005; 99284